=== PATIENT | male | born 2000 | race Caucasian/White ===

== ENCOUNTER 2025-01-13 16:09 | Emergency (ER) | payer BC, OTHER ==
[~2025-01-13] VITALS: Ht 172.7 cm; Wt 82.6 kg
[2025-01-13 16:14] VITALS: BP 127/58; TEMP 98; O2SAT 100
== END 2025-01-13 19:19 | disposition home or self-care (01) ==
LOC: M ED 16:09
DX: H61.122 Hematoma of pinna, left ear (principal)